=== PATIENT | female | born 1965 | race Two or more races ===

== ENCOUNTER 2020-01-05 11:30 | Day surgery (SDC) | payer OTHER | END 2020-01-05 17:49 | disposition home or self-care (01) | LOC: CIR.AMB 11:30 | PROVIDERS: ATTEND Orthopaedic Surgery Hand Surgery | DX: S52.531A Colles' fracture of right radius, initial encounter for closed fracture (principal); Z20.828 Contact with and (suspected) exposure to other viral communicable diseases | CPT/HCPCS: 25609; C1776; 25280; 25118 ==

== ENCOUNTER 2022-12-31 03:24 | Emergency (ER) | payer BC ==
[~2022-12-31] VITALS: Ht 160 cm; Wt 59.0 kg
[2022-12-31] MEDS ORDERED: SINGULAIR10 MG PO (03:36)
[2022-12-31] MEDS ORDERED: BREO ELLIPTA I1 EACH IH (03:36)
[2022-12-31] MEDS ORDERED: KETO10TA2 PO (06:46)
== END 2022-12-31 07:04 ==
LOC: ER 03:24
DX: S32.511A Fracture of superior rim of right pubis, initial encounter for closed fracture (principal); W18.30XA Fall on same level, unspecified, initial encounter; Y92.9 Unspecified place or not applicable; Y99.9 Unspecified external cause status; Z20.822 Contact with and (suspected) exposure to COVID-19